=== PATIENT | male | born 1985 | race African-American/Black ===

== ENCOUNTER 2017-08-12 07:22 | Emergency (ER) | payer MEDICAID ==
[~2017-08-12] VITALS: Ht 182.9 cm; Wt 74.8 kg
--- NOTE | 2017-08-12 08:10 | NUR ---
PT TO E ROOM 16. SI WITH PLAN TO OD ON METH, STATES DEPRESSED. Hx OF HIV SINCE , NOT COMPLIANT WITH MEDS. WANTS HELP AND PSYCHE HOSPITALIZATION. A/A/O. AMBULATORY. SIDE RAISL UP. HOB ELEVATED. AWAITING EVALUATION BY ER PROVIDER.
--- NOTE | 2017-08-12 08:49 | NUR ---
URINE COLLECTED AND SEND TO LAB. BRAND MARKETING SPECIALIST AT BEDSIDE FOR BLOOD DRAW.
[2017-08-12 09:01] LABS: BASOPHILS % (AUTO) 0.3 % (0.0-2.0); EOSINOPHILS # (AUTO) 0.2 /CMM (0.0-0.7); EOSINOPHILS % (AUTO) 1.7 % (0.0-6.0); HEMATOCRIT 43 % (39-51); HEMOGLOBIN 14.2 g/dL (13.5-17.5); LYMPHOCYTES # (AUTO) 2.6 /CMM (0.8-4.8); LYMPHOCYTES % (AUTO) 28.9 % (20.0-44.0); MEAN CORPUSCULAR HEMOGLOBIN 30 PG (26.0-33.0); MEAN CORPUSCULAR HGB CONC 33 g/dl (31.0-36.0); MEAN CORPUSCULAR VOLUME 88 fL (80-96); MONOCYTES % (AUTO) 10.7 % (2.0-12.0); NEUTROPHILS # (AUTO) 5.3 /CMM (1.8-8.9); NEUTROPHILS % (AUTO) 58.4 % (43.0-81.0); PLATELET COUNT (AUTO) 233 /CMM (150-450); RDW COEFFICIENT OF VARIATION 13.5 (11.5-15.0); RED BLOOD CELL COUNT(AUTO) 4.82 MIL/uL (4.5-6.0); WHITE BLOOD COUNT (AUTO) 9.1 K/uL (4.3-11.0)
[2017-08-12 09:08] LABS: CALCIUM, SERUM 9.3 mg/dL (8.5-10.1); CARBON DIOXIDE 26 mmol/L (21-32); CHLORIDE 104 mmol/L (98-107); CREATININE 1.2 mg/dL (0.6-1.3); GLUCOSE 88 mg/dL (74-106); POTASSIUM 3.7 mmol/L (3.5-5.1); SODIUM SERUM 137 mmol/L (136-145); UREA NITROGEN, BLOOD 21 mg/dL (7-18)
[2017-08-12 09:13] LABS: ALANINE AMINOTRANSFERASE 26 U/L (12-78); ALBUMIN 4.5 g/dL (3.4-5.0); ALCOHOL, BLOOD < 3 mg/dL (0-0); ALKALINE PHOSPHATASE 77 U/L (46-116); ASPARTATE AMINOTRANSFERASE 34 U/L (15-37); BILIRUBIN,DIRECT 0.1 mg/dL (0.0-0.2); BILIRUBIN,TOTAL 0.8 mg/dL (0.2-1.0); TOTAL PROTEIN, SERUM 7.9 g/dL (6.4-8.2)
[2017-08-12 09:23] LABS: APPEARANCE,URINE Slightly Cloudy (CLEAR); BILIRUBIN,URINE MODERATE (NEGATIVE); BLOOD, URINE Negative Ery/uL (NEGATIVE); KETONES,URINE 40 (NEGATIVE); LEUKOCYTE ESTERASE ,URINE Negative (NEGATIVE); NITRITE, URINE Negative (NEGATIVE); PH,URINE 5.5 (5.0-8.0); PROTEIN,URINE 30 mg/dl (NEGATIVE); UGLUCOSE Negative (NEGATIVE)
[2017-08-12 09:33] LABS: COLOR,URINE Dark Yellow (YELLOW)
[2017-08-12 09:35] LABS: BACTERIA,URINE None seen /HPF (None Seen); RBC,URINE 0-2 /HPF (0-2); SQUAMOUS EPITHELIAL CELL,UR Few /HPF (None Seen)
--- NOTE | 2017-08-12 10:32 | NUR ---
PAGED ART, CHIEF SERVICE DISPATCHER.
--- NOTE | 2017-08-12 10:42 | NUR ---
ART CALLED [phone] - LEFT MSG
--- NOTE | 2017-08-12 11:52 | NUR ---
ART SOAKER MEAT AT BEDSIDE
[2017-08-12] MEDS ORDERED: hydrOXYzine 10 MG TABLET ONE (11:57)
[2017-08-12] MEDS ORDERED: hydrOXYzine 10 MG TABLET PO ONE (12:00)
--- NOTE | 2017-08-12 13:23 | NUR ---
SEEN BY ACE OLIVARES, GOING TO BED 16 AT [facility]. [facility]. VN, ACCEPTED BY DR LEGGETT, REPORT TO [phone] X [phone]
[2017-08-12 14:36] VITALS: BP 148/94
--- NOTE | 2017-08-12 14:36 | NUR ---
Patient discharged to [facility] in stable condition. Written and verbal after care instructions given. Patient verbalizes understanding of instruction.
== END 2017-08-12 14:37 | disposition home or self-care (01) ==
LOC: ER 07:31
DX: R45.851 Suicidal ideations (principal); I10 Essential (primary) hypertension; F31.9 Bipolar disorder, unspecified; G89.29 Other chronic pain
CPT/HCPCS: 36415; 80048; 80076; 80305; 81001; 85025; 99284; A4606; G0480; Q0177; Z7610; 81000-TC

== ENCOUNTER 2018-06-08 16:40 | Emergency (ER) | payer MEDICAID ==
[~2018-06-08] VITALS: Ht 182.9 cm; Wt 75.7 kg
[2018-06-08] MEDS ORDERED: MORPHINE SULFATE INJ 4 MG/ML DISP.SYRIN ONE (17:28)
[2018-06-08] MEDS ORDERED: ONDANSETRON HCL/PF 4 MG/2 ML VIAL ONE (17:28)
[2018-06-08] MEDS ORDERED: HYDROCORTISONE ACETATE 25 MG/SUPP.RECT SUPP.RECT RC ONE ×2 (17:29→17:30)
[2018-06-08] MEDS ORDERED: MORPHINE SULFATE INJ 2 MG/ML DISP.SYRIN IV ONE (17:30)
[2018-06-08] MEDS ORDERED: IV NS 0.9% 1,000 ML BAG IV ONE (17:30)
[2018-06-08] MEDS ORDERED: ONDANSETRON HCL/PF 4 MG/2 ML VIAL IVP ONE (17:30)
--- NOTE | 2018-06-08 17:30 | NUR ---
BIB SELF C/O RECTAL PAIN, POSS RECTAL ABSCESS. PATIENT NOTED WITH HEMORRHOIDS, ON RECTAL AREA. BREATHING EVEN AND UNLABORED, NO SOB NOTED, VSS STABLE, NO OTHER COMPLAINTS. WILL CONTINUE TO MONITOR.
[2018-06-08 17:35] LABS: BASOPHILS # (AUTO) 0.1 /CMM (0.0-0.2); BASOPHILS % (AUTO) 0.8 % (0.0-2.0); EOSINOPHILS % (AUTO) 3.6 % (0.0-6.0); HEMATOCRIT 37 % (39-51); HEMOGLOBIN 12.1 g/dL (13.5-17.5); LYMPHOCYTES # (AUTO) 2.1 /CMM (0.8-4.8); MEAN CORPUSCULAR HGB CONC 33 g/dl (31.0-36.0); MEAN CORPUSCULAR VOLUME 89 fL (80-96); MONOCYTES # (AUTO) 0.9 /CMM (0.1-1.30); MONOCYTES % (AUTO) 11.7 % (2.0-12.0); NEUTROPHILS % (AUTO) 54.9 % (43.0-81.0); PLATELET COUNT (AUTO) 282 /CMM (150-450); RED BLOOD CELL COUNT(AUTO) 4.16 MIL/uL (4.5-6.0); WHITE BLOOD COUNT (AUTO) 7.4 K/uL (4.3-11.0)
[2018-06-08 17:48] LABS: CALCIUM, SERUM 8.3 mg/dL (8.5-10.1); CREATININE 1.1 mg/dL (0.6-1.3)
[2018-06-08] MEDS ORDERED: CT SWABBABLE VALVE TRANS SET 1 EA INFUS.SET MC ONE (17:58)
[2018-06-08] MEDS ORDERED: IOHEXOL-300 100 ML VIAL IV ONE (17:58)
[2018-06-08] MEDS ORDERED: IV NS 0.9% 250 ML IV ONE (17:58)
--- NOTE | 2018-06-08 18:10 | NUR ---
PATIENT BROUGHT TO RADIOLOGY FOR CT SCAN.
[2018-06-08] MEDS ORDERED: TRAMADOL HCL 50 MG TABLET ONE (18:47)
--- NOTE | 2018-06-08 18:51 | NUR ---
TRAMADOL GIVEN FOR PAIN.
[2018-06-08] MEDS ORDERED: TRAMADOL HCL 50 MG TABLET PO ONE (19:00)
--- NOTE | 2018-06-08 19:14 | NUR ---
Patient discharged to home in stable condition. Written and verbal after care instructions given. Patient verbalizes understanding of instruction.
[2018-06-08 19:15] VITALS: BP 120/80
== END 2018-06-08 19:22 | disposition home or self-care (01) ==
LOC: ER 16:43
DX: K64.8 Other hemorrhoids (principal); I10 Essential (primary) hypertension; G89.29 Other chronic pain; M54.9 Dorsalgia, unspecified; Z60.2 Problems related to living alone
CPT/HCPCS: 36415; 72193-TC; 80048-TC; 85025-TC; 85730-TC; A4606; A6403; J2270; J2405; J7030; J7050; Q9967; Z7610